=== PATIENT | female | born 1980 | race Caucasian/White ===

== ENCOUNTER 2024-10-16 21:22 | Inpatient (IN) | payer OTHER ==
[~2024-10-16] VITALS: Ht 162.6 cm; Wt 47.6 kg
[~2024-10-16 21:22] MED LIST: OMEP20ER PO; PROM12.5S PO; PROP10 PO; Percocet 5-3251 EACH PO; SIME80CH PO
[2024-10-16 22:35] LABS: BASOPHILS ABSOLUTE AUTO 0.03 K/mm3 (0.00-0.23); BASOPHILS PERCENT AUTO 0 % (0-2); EOSINOPHILS ABSOLUTE AUTO 0.13 K/mm3 (0.00-0.68); EOSINOPHILS PERCENT AUTO 2 % (0-6); Hematocrit 37.4 % (33.0-51.0); Hemoglobin 13.3 g/dL (11.5-16.0); IMMATURE GRAN ABSOLUTE AUTO 0.02 K/mm3 (0.00-0.10); IMMATURE GRAN PERCENT AUTO 0 % (0-1); LYMPHOCYTES ABSOLUTE AUTO 2.76 K/mm3 (0.84-5.20); LYMPHOCYTES PERCENT AUTO 32 % (21-46); MONOCYTES ABSOLUTE AUTO 0.68 K/mm3 (0.16-1.47); MONOCYTES PERCENT AUTO 8 % (4-13); Mean Corpuscular HGB 35.1 pg (26.0-34.0); Mean Corpuscular HGB Conc 35.6 g/dL (31.5-36.5); Mean Corpuscular Volume 99 fL (80-100); NEUTROPHILS ABSOLUTE AUTO 5.11 K/mm3 (1.96-9.15); NEUTROPHILS PERCENT AUTO 59 % (41-73); Platelet Count 372 K/mm3 (150-400); RDW Coefficient Variation 11.2 % (11.7-14.2); RDW Standard Deviation 40.9 fL (35.1-46.3); Red Blood Cell Count 3.79 M/mm3 (3.80-5.20); White Blood Cell Count 8.73 K/mm3 (4.00-11.30)
[2024-10-16 22:59] LABS: Ethanol (Alcohol), Blood, Med <3 mg/dL; Salicylate 2.1 mg/dL (2.8-20.0)
[2024-10-16 23:09] LABS: Acetaminophen, Random <2.0 ug/mL (10.0-30.0); Alanine Aminotransfer (ALT/SGP 51 U/L (12-78); Albumin, Blood 3.4 g/dL (3.4-5.0); Alk Phos 92 U/L (50-136); Anion Gap 11 mmol/L (3-11); Aspartate Aminotrans (AST/SGOT 35 U/L (12-37); Bilirubin, Total 0.2 mg/dL (0.1-1.0); Blood Urea Nitrogen 18 mg/dL (8-24); Bun/Creatinine Ratio 23.3 (12.0-20.0); CO2, Blood 26 mmol/L (21-32); Chloride, Blood 108 mmol/L (98-108); Creatinine, Blood 0.77 mg/dL (0.40-1.00); Globulin, Blood 3.4 g/dL (2.2-4.0); Glomerular Filtration Rate 97 (60-); Glucose, Blood 123 mg/dL (70-99); Potassium, Blood 3.7 mmol/L (3.5-5.5); Sodium, Blood 141 mmol/L (136-145); Total Protein, Blood 6.8 g/dL (6.4-8.2)
[2024-10-16 23:30] LABS: Source, Urine Clean Catch
[2024-10-16] MEDS ORDERED: Propranolol HCL 20 MG TAB PO SCH (23:35)
[2024-10-16 23:45] LABS: Bilirubin, Urine Neg (Neg); Blood, Urine Neg (Neg); Glucose Qualitative, Urine Neg (Neg); Ketones, Urine Neg (Neg); Leukocyte Esterase, Urine Neg (Neg); Nitrite, Urine Neg (Neg); Protein, Urine Neg (Neg); Urobilinogen, Urine NORM (Normal); pH, Urine 6.5 (5.0-8.0)
[2024-10-16 23:47] LABS: Appearance, Urine Hazy (Clear); Color, Urine Pale Yellow (P-Yellow)
[2024-10-16 23:48] LABS: Amorphous Heavy (0-Heavy); Bacteria Few /hpf; Red Blood Cells, Urine 0-2 /hpf (0-2); Squamous Epithelial Cells Few /hpf (Few); White Blood Cells, Urine 0-2 /hpf (0-5)
[2024-10-16 23:52] LABS: U Amphetamine Screen DETECTED; U Barbituate Screen Not Detected; U Benzodiazapine Screen Not Detected; U Cocaine Screen Not Detected; U Methamphetamine Screen DETECTED
[2024-10-16 23:53] LABS: U Buprenorphine Screen Not Detected; U Cannabinoids Screen Not Detected; U Methadone Screen Not Detected; U Opiates Screen Not Detected; U Oxycodone Screen Not Detected; U Phencyclidine Screen Not Detected
[2024-10-17 00:10] LABS: Influenza A, PCR NEGATIVE (NEGATIVE); Influenza B, PCR NEGATIVE (NEGATIVE); Resp Syncytial Virus, PCR NEGATIVE (NEGATIVE); SARS-Cov-2 (COVID-19) PCR, MMC NEGATIVE (NEGATIVE)
[2024-10-17] MEDS ORDERED: OMEP20ER PO (12:12)
== END 2024-10-17 12:43 | disposition other institution (70) | DRG 897 ==
LOC: ER 21:22 → EOR 22:18 → EDBEDREQTM 22:27 → EDBEDREQ 22:27 → EOR 10-17 12:43
PROVIDERS: Student in an Organized Health Care Education/Training Program; ADMIT Emergency Medicine
PROC: 2W3KX1Z Immobilization of Left Finger using Splint (ICD-10-PCS; principal; 2024-10-17)
DX: F15.951 Other stimulant use, unspecified with stimulant-induced psychotic disorder with hallucinations (principal); R45.851 Suicidal ideations; Z59.00 Homelessness unspecified; F43.10 Post-traumatic stress disorder, unspecified; F41.8 Other specified anxiety disorders; F10.20 Alcohol dependence, uncomplicated; Y90.0 Blood alcohol level of less than 20 mg/100 ml; G89.29 Other chronic pain; M19.90 Unspecified osteoarthritis, unspecified site; F17.210 Nicotine dependence, cigarettes, uncomplicated; S62.615A Displaced fracture of proximal phalanx of left ring finger, initial encounter for closed fracture; J45.909 Unspecified asthma, uncomplicated; D64.9 Anemia, unspecified; X58.XXXA Exposure to other specified factors, initial encounter; Z79.899 Other long term (current) drug therapy; Z91.410 Personal history of adult physical and sexual abuse; Z88.5 Allergy status to narcotic agent; Z88.6 Allergy status to analgesic agent; Z79.891 Long term (current) use of opiate analgesic; Z87.19 Personal history of other diseases of the digestive system; Z85.42 Personal history of malignant neoplasm of other parts of uterus; Z98.51 Tubal ligation status; Z90.710 Acquired absence of both cervix and uterus; Z90.89 Acquired absence of other organs
CPT/HCPCS: 0241U; 73130; 80053; 80320; 81001; 81025; 85025; 93005; 93010; 99285-25; A9270; G0378; G0480

== ENCOUNTER 2024-10-17 10:35 | Inpatient (IN) | payer OTHER ==
[2024-10-17] MEDS ORDERED: OMEP20ER PO (12:12)
[2024-10-17 12:21] VITALS: BP 129/99
[2024-10-17] MEDS ORDERED: Haloperidol 5 MG Tab PO PRN (12:45)
[2024-10-17] MEDS ORDERED: FLU VACC TS2024-25(6MOS UP)/PF 45 MCG/0.5 ML SYRINGE IM SCH (12:45)
[2024-10-17] MEDS ORDERED: DiphenhydrAMINE HCl 50 MG Cap PO PRN (12:45)
[2024-10-17] MEDS ORDERED: Calcium Carbonate 500 MG Tab Chew PO PRN (12:45)
[2024-10-17] MEDS ORDERED: HydrOXYzine Pamoate 50 MG Cap PO PRN (12:45)
[2024-10-17] MEDS ORDERED: DiphenhydrAMINE HCl 50 MG/ML 1ML Vial IV PRN (12:45)
[2024-10-17] MEDS ORDERED: Haloperidol Lactate Inj. 5 MG/ML Injection IM PRN (12:45)
[2024-10-17] MEDS ORDERED: Polyethylene Glycol 3350 17 gm PO PRN (12:50)
[2024-10-17] MEDS ORDERED: OLANZapine ODT 10 MG Tab MM PRN (12:50)
[2024-10-17] MEDS ORDERED: Melatonin 3 MG Tab PO PRN (12:50)
[2024-10-17] MEDS ORDERED: Aluminum Hydroxide 320MG/5ML 473 ML PO PRN (12:50)
[2024-10-17] MEDS ORDERED: Ondansetron 4 MG SoluTab MM PRN (12:50)
[2024-10-17] MEDS ORDERED: Acetaminophen 325 MG TABLET PO PRN (12:50)
[2024-10-17] MEDS ORDERED: TraZODone HCl 50 MG Tab PO PRN (12:50)
[2024-10-17] MEDS ORDERED: LORazepam 2 MG Tab PO PRN (12:55)
[2024-10-17] MEDS ORDERED: LORazepam 2 MG/ML 1ML Injection IM PRN (12:55)
[2024-10-17] MEDS ORDERED: Ibuprofen 600 MG Tab PO PRN (12:55)
[2024-10-17] MEDS ORDERED: Nicotine Polacrilex 2 MG Gum PO PRN (14:10)
--- NOTE | 2024-10-17 14:29 | NUR ---
ADMIT NOTE. PT ADMITTED AT 1221. PT AMITTED FROM ED. A/O X4. CLEAR THOUGHTS. PT WITH SI AND PLAN OF FENTANYL OD WITH ALCOHOL. REASON IS DOESN'T FEEL LIKE NOTHING TO LIVE FOR. SON LIVES IN [place], BOY FRIEND REYES IN [facility] AT THIS TIME, STATES SHE IS GOING TO LOOSE HER HOUSING, HAS BEEN FEELING DEPRESSED FOR OVER 2 MONTHS WITH ANXIETY. VERY OPEN ON INTAKE INFORMAION. CAME TO UNIT WITH DRESSING TO LEFT HAND ON RING FINGER AND PINKY. HAS AN OBLQUE FRACTURE ON THE RING FINGER WITH SWELLING PRESENT ON KNUCKLE. STATES HER DOG LEASH WRAPPED AROUND HER FINGERS ABOUT 2 WEEKS AGO. PT ALSO STATES THAT SHE HAS WARRENTS OUT ON HERSELF. STATES SHE HASN'T USED METH IN OVER A WEEEK BUT DRANK ALCOHOL YESTERDAY. ORIENTED TO UNIT AND EXPECTATIONS OF STAY. WILL CONTINUE TO MONITOR.
--- NOTE | 2024-10-17 17:26 | NUR ---
SHIFT SUMMARY: PT UP IN DINING AREA EATING DINNER. INTERACTING WITH PEERS. HAS BEEN UP IN DAY ROOM AND WATCHING TV. TOOK SHOWER. PT EXPRESSED THAT SHE GOES WITHOUT FOOD SOMETIMES USING HER DBT CARD FOR [employer] AND THAT IS COSTLY FOR HER. PT IS SMOKER AND NICOTINE GUM ORDERED PRN. OVERALL PT IS MORE VIBRANT THAN ON ADMISSION. WILL CONTINUE TO MONITOR
[2024-10-17] MEDS ORDERED: OLANZapine 5 MG Tab PO SCH (21:00)
--- NOTE | 2024-10-18 02:48 | NUR ---
SHIFT SUMMARY: ASSUMED CARE FROM PRIOR SHIFT. PATIENT ALREADY IN BED AND SLEEPING AT BEGINNING OF SHIFT. SHE IS CURRENTLY REFUSING MEDICATIONS. SHE TELLS ME "I DON'T WANT TO BE HERE" AND "I'M NOT TAKING ANY OF THOSE MEDICATIONS". RN EXPLAINS SHE HAS THE RIGHT TO REFUSE MEDICATIONS HOWEVER, REMINDED HER SHE IS HERE TO FEEL AND GET BETTER. SHE DID EXPRESS SHE WAS ANXIOUS AND AGITATED. EDUCATED HER THAT MEDICATIONS CAN HELP WITH THAT. SHE STATED "I JUST WANT TO SLEEP FOR RIGHT NOW". SHE WAS UNWILLING TO ANSWER ANY FURTHER QUESTIONS. SHE IS SLEEPING THROUGH THE NIGHT. NO NOTED BEHAVIORS OR ISSUES. WE WILL CONTINUE TO MONITOR EVERY 15 MIN FOR SAFETY AND COMFORT.
--- NOTE | 2024-10-18 05:32 | NUR ---
PATIENT CONTINUES TO SLEEP. NO NOTED ISSUES OR BEHAVIORS.
[2024-10-18 08:07] VITALS: BP 118/76
[2024-10-18] MEDS ORDERED: Multivitamins 1 Tab PO SCH (09:00)
--- NOTE | 2024-10-18 13:25 | NUR ---
DISCHARGE NOTE: PT ALERT, ORIENTED AND COOPERATIVE. DENIES SI, HI AND AVH. PT DISCHARGED HOME. PROVIDED WITH DISCHARGE INSTRUCTIONS AND PT DENIED QUESTIONS. [facility]
== END 2024-10-18 13:25 | disposition home or self-care (01) | DRG 897 ==
LOC: BHU 10:35
PROVIDERS: ADMIT Student in an Organized Health Care Education/Training Program
DX: F15.251 Other stimulant dependence with stimulant-induced psychotic disorder with hallucinations (principal); R45.851 Suicidal ideations; F10.20 Alcohol dependence, uncomplicated; F43.10 Post-traumatic stress disorder, unspecified; Z91.410 Personal history of adult physical and sexual abuse
CPT/HCPCS: A9270